=== PATIENT | female | born 1955 | race Caucasian/White ===

== ENCOUNTER 2018-12-28 13:59 | Inpatient (IN) | payer BC ==
[~2018-12-28] VITALS: Ht 165.1 cm; Wt 54.4 kg
--- NOTE | ~2018-12-28 | H ---
[facility] [address] [place] [address] HISTORY AND PHYSICAL Name: DAVI CAO Room #: 426-P ADM IN M.R.#: [id number] Admission: 12/28/18 ������������������ Attend Phys: Milton Valadez MD Discharge: ������������������ Date of : 53 Report #: [id number] THIS REPORT FOR: //name// CC: Milton Valadez DATE OF SERVICE: 12/28/2018 CHIEF COMPLAINT: Right-sided abdominal abscess causing persistent abdominal pain. DICTATION ENDS HERE ��������������������������������������������� ���������������������������������������� By: ��������������������������������������������� 1927 41 Milton Valadez MD /nt
--- NOTE | ~2018-12-28 | H ---
[facility] [place] [address] HISTORY AND PHYSICAL Name: DAVI CAO Room #: 426-P ADM IN M.R.#: [id number] Admission: 12/28/18 ������������������ Attend Phys: Milton Valadez MD Discharge: ������������������ Date of : 53 Report #: [id number] THIS REPORT FOR: //name// CC: Fernando Valadez DATE OF SERVICE: 12/28/2018 CHIEF COMPLAINT: Continued abdominal pain with finding of an abscess. HISTORY OF PRESENT ILLNESS: The patient is a 63-year-old female who has had irritable bowel from time to time. In August of this year she thought that it was time for her to have a colonoscopy, having been about 10 years since her previous one, and on 08/20/2018 Dr. Gonzalez performed a colonoscopy that was completely normal. About a month later she began to have severe abdominal pain over the left lower quadrant area and actually over the entire abdomen. It triggered nausea and vomiting and she was seen and admitted at an outside hospital on 09/13/2018. Evaluation was negative at that time with a finding of nonspecific inflammatory change in the right lower quadrant. She was admitted in the hospital overnight and discharged the following day. She had no further pain until several days leading up to her second outside hospitalization on 12/22/2018. ��������������������������������������������� ���������������������������������������� By: ��������������������������������������������� 1944 23 Milton Valadez MD /nt
--- NOTE | ~2018-12-28 | H ---
[facility] [place] [address] HISTORY AND PHYSICAL Name: DAVI CAO Room #: 426-P ADM IN M.R.#: [id number] Admission: 12/28/18 ������������������ Attend Phys: Milton Valadez MD Discharge: ������������������ Date of : 53 Report #: [id number] THIS REPORT FOR: //name// CC: Milton Valadez DATE OF SERVICE: 12/28/2018 CHIEF COMPLAINT: Right-sided abdominal pain. HISTORY OF PRESENT ILLNESS: The patient is a 63-year-old thin, female who has a persistent waxing and waning abdominal pain on the right side of the abdomen, more in the right upper quadrant. She was admitted at an outside hospital overnight from 12/22/2018 to 12/23/2018 and then discharged for further followup. CT scan of the abdomen showed an abnormal appearance of the colon suggesting diarrhea or perhaps other problems with the colon. The appendix was noted as being unusual in appearance and size, but having not changed from the comparison study of 09/13/2018. On 09/13/2018, she had presented to the same facility for the same complaints of abdominal pain with vomiting. Since she was released last week, her abdominal pain has been somewhat more persistent. Because of that, she decided to call my office and was seen and evaluated. She was found to have a palpable mass on the right side of the abdomen and hospitalization was indicated. She had not been seen in my office since 08/2017. CT scan of the abdomen this evening shows multiple abscesses in the right side of the abdomen. The appendix is not identified there. PERTINENT PAST MEDICAL HISTORY: On 08/20/2018, she had a routine screening colonoscopy and routine colonoscopy that was entirely normal. PAST SURGICAL HISTORY: She has had two sections. She has had no other surgical procedures except for a tonsillectomy when she was about 4 years old. ALLERGIES: SHE "BLACKED OUT" WHEN SHE WAS IN GRADE SCHOOL AFTER RECEIVING A SERIES OF PENICILLIN SHOT SEVERAL DAYS IN A ROW. THERE IS NO HISTORY OF A RASH ASSOCIATED WITH THAT REACTION. SHE WAS GIVEN SULFA ANTIBIOTIC FOR AN INFECTED TOE THAT CAUSED HER TO FEEL "WEIRD" IN 2008, BUT THERE IS NO RASH ASSOCIATED WITH THE SULFA EXPOSURE. CURRENT PRESCRIPTION MEDICATIONS: Sertraline at an unknown strength is being taken daily. Chondroitin sulfate [id number]. FAMILY HISTORY: Her mother had appendicitis. SOCIAL HISTORY: She works for the [employer]. She does [address] [address] HISTORY AND PHYSICAL Name: DAVI CAO Room #: 426-P [facility] IN [employer].#: [id number] Admission: 12/28/18 ������������������ Attend Phys: Milton Valadez MD Discharge: ������������������ Date of : 53 Report #: [id number] not smoke. She has 1-2 glasses of wine on a daily basis. She is and has children who [place]. REVIEW OF SYSTEMS: Entirely negative except for the HPI. PHYSICAL EXAMINATION: GENERAL: Shows a 63-year-old female who is uncomfortable. HEENT: Unremarkable. The oropharynx is normal. LUNGS: Clear. CARDIOVASCULAR: Heart tones are normal and regular. ABDOMEN: Has a palpable mass in the right mid portion of 8 x 4 cm. The area is tender with some rebound tenderness present. Bowel sounds are normal. EXTREMITIES: Normal. NEUROLOGIC: Normal as well. A CT scan has been performed this afternoon, colon shows multifocal abscesses along the margin of the cecum. There is also a comment regarding the cecum and the ascending colon suggesting of colitis. There is layering of fluid deep in the pelvis as well as bladder wall thickening. Important laboratory data shows her albumin to be low at 2.9, her CRP is elevated at 192 (less than 9). White blood cell count is normal at 8800 with 75% segmented neutrophils and 2% band forms, erythrocyte sedimentation rate is elevated at 71. The patient was again examined with Dr. Adolfo Walters. He reviewed the abscess location and it actually consists of multiple smaller abscesses and more of a phlegmon type distribution. ASSESSMENT: 1. Multiple abscesses outside of the colon wall, consistent with response to a leak or a rupture or again most consistent with that of an appendicitis. 2. Abdominal pain. 3. Mild depression, well treated on current dose of sertraline. PLAN: Reviewing the location of multiple abscesses, Dr. Walters has recommended that Interventional Radiology consider draining the areas. With her PENICILLIN ALLERGY HISTORY, she is being put on intravenous ciprofloxacin and metronidazole. Intravenous fluids are being given. She currently will remain n.p.o. until after consideration for a drainage procedure in the morning. [address] [address] HISTORY AND PHYSICAL Name: DAVI CAO Room #: 426-P ADM IN M.R.#: [id number] Admission: 12/28/18 ������������������ Attend Phys: Milton Valadez MD Discharge: ������������������ Date of : 53 Report #: [id number] The patient requests a full resuscitation. ��������������������������������������������� ���������������������������������������� By: ��������������������������������������������� 2006 2045 Milton Valadez MD /angelina
[2018-12-28 14:37] LABS: HEMATOCRIT 36.8 % (37.0-47.0); HEMOGLOBIN 12.2 gm/dL (12.0-15.0); MCH 30.9 pg (26.0-34.0); MCHC 33.1 g/dL (28.0-37.0); MCV 93.2 fL (80.0-100.0); PLATELET COUNT 355 thou/uL (150-400); RBC 3.95 mil/uL (4.20-5.00); RDW 13.2 % (10.5-14.5); WBC 8.8 thou/uL (4.0-11.0)
[2018-12-28 14:44] VITALS: BP 65/45
[2018-12-28 14:45] LABS: ALBUMIN 2.9 g/dL (3.4-5.0); CALCIUM 8.8 mg/dL (8.5-10.1); CREATININE 0.6 mg/dL (0.6-1.0); POTASSIUM 3.8 mmol/L (3.5-5.1); TOTAL BILIRUBIN 0.3 mg/dL (<0.1-1.0); TOTAL PROTEIN 7.2 g/dL (6.4-8.2)
[2018-12-28 15:05] LABS: ABSOLUTE NEUTROPHILS 6.9 thou/uL (1.4-8.2); ANISOCYTOSIS 1+; ATYPICAL LYMPHS 1 %
[2018-12-28 15:07] LABS: POLYCHROMASIA OCCASIONAL
[2018-12-28 15:49] VITALS: BP 105/72
--- NOTE | 2018-12-28 18:34 | NUR ---
Pt direct admit from Dr. Valadez office at approx 1500. A&o x4. Up ad dasha in room. IVF infusing. NPO. Drinking oral contrast for CT scan. Admission completed. Pt states she does not take any perscription medication at home. Dr. Walters consulted. Call light within reach. Will continue to monitor.
[2018-12-28 19:15] VITALS: BP 120/66
[2018-12-28 21:17] LABS: URINE BILIRUBIN NEGATIVE (Negative); URINE BLOOD NEGATIVE (Negative); URINE CLARITY CLEAR; URINE COLOR YELLOW; URINE GLUCOSE-RANDOM* NEGATIVE (Negative); URINE KETONES 2+ (Negative); URINE LEUKOCYTES-REFLEX NEGATIVE (Negative); URINE NITRITE-REFLEX NEGATIVE (Negative); URINE PROTEIN (DIPSTICK) TRACE (Negative); URINE SPECIFIC GRAVITY <= 1.005 (1.005-1.035); URINE UROBILINOGEN 0.2 E.U./dl (0.2-1.0)
[2018-12-29] VITALS (14 sets, daily range): BP systolic 91–120; BP diastolic 42–72
[2018-12-29 05:35] LABS: HEMATOCRIT 33.8 % (37.0-47.0); HEMOGLOBIN 11.4 gm/dL (12.0-15.0); MCH 31.3 pg (26.0-34.0); MCHC 33.7 g/dL (28.0-37.0); MCV 92.9 fL (80.0-100.0); PLATELET COUNT 300 thou/uL (150-400); RBC 3.64 mil/uL (4.20-5.00); RDW 13.2 % (10.5-14.5); WBC 7.5 thou/uL (4.0-11.0)
[2018-12-29 05:49] LABS: INR 1.1
[2018-12-29 05:52] LABS: ALBUMIN 2.3 g/dL (3.4-5.0); CALCIUM 8.1 mg/dL (8.5-10.1); CREATININE 0.6 mg/dL (0.6-1.0); POTASSIUM 3.7 mmol/L (3.5-5.1); TOTAL BILIRUBIN 0.3 mg/dL (<0.1-1.0); TOTAL PROTEIN 5.9 g/dL (6.4-8.2)
[2018-12-29 07:32] LABS: ABSOLUTE NEUTROPHILS 5.3 thou/uL (1.4-8.2)
[2018-12-29 07:33] LABS: ANISOCYTOSIS SLIGHT
--- NOTE | 2018-12-29 10:47 | NUR ---
Chart reviewed and case discussed with the care team. Cm role introduced at bedside. Pt is a&ox4 and living independently prior to admission. She works fulltime and has health insurance through her employer. Her dtrs Eliza and Umm are her primary contacts. Eliza lives locally. Pt awaiting IR procedure for draining abcess. Will follow for possible iv atb at dc pending the plan of care. The pt is agreeable if needed. Support provided.
--- NOTE | 2018-12-29 11:58 | NUR ---
Assumed care of pt at 0700. Pt a&ox4. Up ad dasha in room. IVF and antibiotics infusing. Awaiting on IR procedure. Pain controlled. Call light within reach.
--- NOTE | 2018-12-30 03:57 | NUR ---
ASSUMED PT CARE 1899. PT ALERT AND ORIENTED. REASSESSMENT COMPLETE. VSS. IV DRESSING C/D/I, NO SIGNS OF INFILTRATION. DENEIS PAIN, AND N/V. FLUSHED ABD DRAIN, MONITORING DRAINAGE. CALL LIGHT AND PERSONAL BELONINGS WITHIN REACH. WILL CONTINUE POC UNTIL EOS.
[2018-12-30 05:39] VITALS: BP 100/51
[2018-12-30 08:37] VITALS: BP 104/48
--- NOTE | 2018-12-30 08:57 | HC ---
[facility] [place] [address] CONSULTATION Name: DAVI CAO Room #: 426-P ADM IN M.R.#: [id number] Admission: 12/28/18 ������������������ Attend Phys: Milton Valadez MD Discharge: ������������������ Date of : 53 Report #: [id number] THIS REPORT FOR: //name// CC: Milton Valadez DATE OF SERVICE: 12/29/2018 INFECTIOUS DISEASE CONSULTATION ATTENDING PHYSICIAN: Milton Valadez MD REASON FOR CONSULTATION: Antibiotic management. HISTORY OF PRESENT ILLNESS: A 63-year-old white woman admitted with abdominal pain. CT scan revealed intra-abdominal abscesses, possibly of appendicular origin. She is started on Cipro and Flagyl. Denies having fevers. No vomiting, no chills. PAST MEDICAL HISTORY: Previous colonoscopy. sections x 2, tonsillectomy. DRUG ALLERGIES: PENICILLIN, QUESTION BLACKING OUT AFTER PENICILLIN, NO RASHES. SULFA DRUG ALLERGY WELL. MEDICATIONS: Currently, she is on treatment with metronidazole 500 IV every 8 hours, ciprofloxacin 500 mg IV b.i.d., morphine sulfate p.r.n., normal saline IV. 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 . Two children. REVIEW OF SYSTEMS: As above. PHYSICAL EXAMINATION: GENERAL: Well-developed, nontoxic looking woman. VITAL SIGNS: Temperature maximum since admission 99.4, pulse 76, respirations 18, BP low at 98/46. Height 5 feet 5 inches, weight 120 pounds. HEENMT: Within range. NECK: Supple. BREASTS: Deferred. LUNGS: Clear. HEART: S1, S2. No gallop or murmur. ABDOMEN: Palpable mass, right lower abdominal quadrant that is tender. PELVIC: Deferred. RECTAL: Deferred. EXTREMITIES: No clubbing, cyanosis. [facility] [address] [place] [address] CONSULTATION Name: DAVI CAO Room #: 426-P ADM IN [employer].#: [id number] Admission: 12/28/18 ������������������ Attend Phys: Milton Valadez MD Discharge: ������������������ Date of : 53 Report #: [id number] NEUROLOGIC: Grossly within normal limits. LABORATORY DATA: Revealed the following abnormals, low sugar of 64. Albumin 2.3 g/dL, CRP 192 mg/L. WBC 7.5, hemoglobin 11.4, platelets 300,000. Sedimentation rate 71 mm per hour. Urinalysis revealed trace protein. RADIOLOGY EVALUATION: CT scan of the abdomen and pelvis revealed diverticular abscesses on right lower abdominal quadrant. ASSESSMENT: 1. Appendicular intra-abdominal abscesses. 2. Hypoalbuminemia. 3. PENICILLIN AND SULFA drug allergy. SUGGESTIONS: Recommend continue Flagyl 500 IV every 8 hours, discontinue Cipro, start meropenem. There is a remote possibility of cross reaction with PENICILLIN, but I have never seen this before, better drug than Cipro. Proceed with percutaneous drainage of abscess. Dr. Valadez, thank you for requesting my suggestions. ��������������������������������������������� <ELECTRONICALLY SIGNED> ���������������������������������������� By: Pablo Frausto MD ��������������������������������������������� 12/30/18 0857 [id number] Pablo Frausto MD /nt
--- NOTE | 2018-12-30 15:43 | NUR ---
FAXED REFERRAL TO [facility] TO HAVE THEM CHECK ON IV ABX COVERAGE IN CASE SHE NEEDS HOME IV ABX. WILL AWAIT COVERAGE INFORMATION.
--- NOTE | 2018-12-30 15:54 | NUR ---
Assumed pt care at 7am.Pt in bed very pleasant and involved in her care. Assessment completed.vss.Breakfast ordered and given.Notified intervention radiology about supplying drainage bag to abdominal abscess.Made several calls before on of the rn came up to attach the bag.Received call from Dr Valadez, updates given.Meds given as ordered.Will continue to monitor.
--- NOTE | 2018-12-30 16:18 | HC ---
[facility] [place] [address] CONSULTATION Name: DAVI CAO Room #: 426-P ADM IN M.R.#: [id number] Admission: 12/28/18 ������������������ Attend Phys: Milton Valadez MD Discharge: ������������������ Date of : 53 Report #: [id number] THIS REPORT FOR: //name// CC: Milton Valadez DATE OF SERVICE: 12/28/2018 SURGICAL CONSULTATION NOTE REASON FOR CONSULTATION: Persistent abdominal pain, right abdomen with a mass. HISTORY OF PRESENT ILLNESS: The patient is a 63-year-old who is admitted for treatment of abdominal pain. I was contacted by Dr. Valadez this morning regarding the patient. She does have a complicated recent medical disease process. The patient was first seen and hospitalized at [facility] on 09/13/2018. She was having abdominal pain at that time. She was hospitalized with pain and vomiting and was hospitalized for a couple of days. She was told she had gastroenteritis. The patient did have a CT performed. The patient felt better, was able to go home. She had done pretty well until 10 days ago where she had the pain come up again and she was seen in the Emergency Room on 12/22/2018. The patient did have a surgical consultation note. Apparently, a repeat CT suggested diarrhea and inflammation and possibly ileitis. I was able to have the CT loaded and I reviewed it with Dr. Beasley here and the patient on her first CT in September looks like her appendix is in a weird position located anterior and superior to the kidney. The cecum is folded on itself. It looked like there was a degree of inflammation of the appendix in September. On 12/22/2018, the CT showed inflammatory mass, which was in a similar location as the appendix but more anterior. It may be due to the fact that her cecum was more full of liquid and it pushed it more anteriorly, but looking at the progression of her CT scan it looked like she had appendicitis. I called Dr. Valadez and spoke with him and the patient is being admitted for further workup repeating a CT today. The patient did have a repeat CT done just now and it did show multiple abscesses. PAST MEDICAL HISTORY: Pretty unremarkable, possibly some depression history. PAST SURGICAL HISTORY: The patient has surgical history of 2 C-sections, tonsillectomy and toe surgery. FAMILY HISTORY: Possibly mom had appendicitis. REVIEW OF SYSTEMS: The patient did have a fever when she was hospitalized to [facility]. The patient denies really sweats, fever at home, and chills. She does have a painful swelling in the right abdomen. PHYSICAL EXAMINATION: [address] [address] CONSULTATION Name: DAVI CAO Room #: 426-P ADM IN M.R.#: [id number] Admission: 12/28/18 ������������������ Attend Phys: Milton Valadez MD Discharge: ������������������ Date of : 53 Report #: [id number] GENERAL: The patient is a thin female. She is not in acute distress. ABDOMEN: There is a large mass in the right mid part of the abdomen that is 4 cm across and 8 cm in length. She is tender in this area. The rest of the abdomen is rather soft without any guarding or rigidity. Bowel sounds are present. IMPRESSION: The patient with a very complex medical history and this is looking back at her history and her CT scan the most likely problem was appendicitis. Her appendix is in an unusual location, which probably led to the misdiagnosis. She now has an abscess that had formed. This is causing the mass, her persistent pain. Very interesting that she does not have elevated white count. She does have a high sed rate and C-reactive protein. Plan of treatment was discussed with Dr. Valadez. The patient is going to be on IV antibiotics. I have put an order for IR to drain the abscess. There are multiple abscesses, hopefully they can get to the larger one and that would help her. We will follow. Plan discussed with Dr. Valadez and the patient. ��������������������������������������������� <ELECTRONICALLY SIGNED> ���������������������������������������� By: Adolfo Walters MD ��������������������������������������������� 12/30/18 1618 1214 18 Adolfo Walters MD /nt
--- NOTE | 2018-12-30 16:36 | NUR ---
RECEIVED WORD BACK FROM [facility] THAT PT HAS 100% COVERAGE FOR DRUG AND SUPPLIES IF IV ABX NEEDED FOR HOME.
[2018-12-30 16:53] VITALS: BP 127/52
[2018-12-30 19:15] VITALS: BP 111/37
--- NOTE | 2018-12-31 04:05 | NUR ---
ASSUMED PT CARE 1899. PT ALERT AND ORIENTED. REASSESSMENT COMPLETE. VSS. IV DRESSING C/D/I. DRAINAGE BAG IN PLACE. MINIMAL OUTPUT. PT DENIES PAIN, DENIES N/V. CALL LIGHT WITHIN REACH. WILL CONTINUE POC UNTIL EOS.
[2018-12-31 04:48] VITALS: BP 105/56
[2018-12-31 05:05] LABS: CALCIUM 7.7 mg/dL (8.5-10.1); CREATININE 0.6 mg/dL (0.6-1.0); POTASSIUM 4.7 mmol/L (3.5-5.1)
[2018-12-31 09:00] VITALS: BP 110/56
[2018-12-31 16:17] VITALS: BP 114/69
--- NOTE | 2018-12-31 16:34 | NUR ---
Assumed pt care at 7am.Pt in and out of room ambulating in hallways.Dr Valadez here order noted.Pt tolerated meds and diet.New piv placed today due to infiltration.Ascess drain flushed with saline as ordered.Warm moist applied to rt ac.Will continue to monitor.
[2018-12-31 19:12] VITALS: BP 102/56
--- NOTE | 2019-01-01 02:50 | NUR ---
ASSUMED PT CARE 1899. PT ALERT AND ORIENTED. REASSESSMENT COMPLETE. VSS. IV DRESSING C/D/I. PT DENIES N/V. REPORTS MINIMAL PAIN. CALL LIGHT AND PERSONAL BELONIGNS WITHIN REACH. WILL CONTINUE POC UNTIL EOS.
[2019-01-01 04:22] VITALS: BP 107/57
[2019-01-01 05:13] LABS: ABSOLUTE NEUTROPHILS 2.6 thou/uL (1.4-8.2); BASOPHILS 0.6 % (0.0-2.0); EOSINOPHILS 2.6 % (0.0-3.0); HEMATOCRIT 34.4 % (37.0-47.0); HEMOGLOBIN 11.4 gm/dL (12.0-15.0); LYMPHOCYTES 20.2 % (24.0-44.0); MCH 30.8 pg (26.0-34.0); MCHC 33.3 g/dL (28.0-37.0); MCV 92.6 fL (80.0-100.0); MONOCYTES 11.2 % (1.0-8.0); POLYS 65.4 % (36.0-66.0); RBC 3.71 mil/uL (4.20-5.00); RDW 13.3 % (10.5-14.5); WBC 3.9 thou/uL (4.0-11.0)
[2019-01-01 05:24] LABS: PLATELET COUNT 415 thou/uL (150-400)
[2019-01-01 05:25] LABS: INR 1.2; PROTIME 12.9 Seconds (9.3-11.4)
[2019-01-01 05:39] LABS: ALBUMIN 1.9 g/dL (3.4-5.0); CREATININE 0.7 mg/dL (0.6-1.0); TOTAL BILIRUBIN 0.1 mg/dL (<0.1-1.0); TOTAL PROTEIN 5.4 g/dL (6.4-8.2)
[2019-01-01 07:25] VITALS: BP 98/53
[2019-01-01 15:42] VITALS: BP 98/53
--- NOTE | 2019-01-01 16:08 | NUR ---
RECEIVED ORDERS THIS AFTERNOON TO ARRANGE IV ABX FOR PT TO DC HOME TODAY. CONTACTED [facility] TO DO THE NURSING AND THEY ARE ABLE TO ACCEPT FOR IV ABX. [facility] HERE TO DO TEACHING ONCE PICC LINE IS IN PLACE. HOME IV ABX FAXED TO [facility]. AWAITING FINAL ORDERS FROM DR GALLEGOS.
--- NOTE | 2019-01-01 16:17 | NUR ---
Assumed pt care at 7am.Pt kept npo for ct abd for f/u abdominal abscess drain. Left around 10 and returned to floor 2 hours later.Assessment completed.vss. Pt ambulated in hallways several times.Dr Frausto here,order noted.Received call from Dr Valadez,updates given.Iv team notified about picc line.Consent signed and picc line placed.Pt will be dc home later this evening or early in am.Pt was concerned about tenderness to her abdomen.No redness noted after examine.Will continue to monitor.
--- NOTE | 2019-01-01 16:44 | NUR ---
VASCULAR ACCESS CONSULTED FOR PICC FOR HOME ABX. PT'S LABS,MEDS,HISTORY,ORDER AND CONSENT VERIFIED. DISCUSSED BENEFITS AND RISKS WITH PT,VERBALIZED UNDERSTANDING. PT WAS PREPPED AND DRAPED FOR MAX BARRIER PRECAUTIONS. MARINO BRACHIAL WAS WIDELY PATENT WITH USG, 1% LIDOCAINE GIVEN SQ. 4FR SL PICC TRIMMED TO 45CM INSERTED TO 1CM EXTERNAL. PICC SECURED STAT CXR ORDERED. WALLET CARD GIVEN TO PT.
--- NOTE | 2019-01-01 17:10 | NUR ---
PICC RELEASED FOR IMMEDIATE USE PER PROTOCOL, CONFIRMED WITH CXR
[2019-01-01 18:01] VITALS: BP 98/53
[2019-01-01 18:34] VITALS: BP 98/53
--- NOTE | 2019-01-01 19:08 | NUR ---
Dr rivero here later this evening.Dc order noted.Picc line placed by iv team earlier this afternoon.First dose of antibiotic given and no reactions noted. Dc summary compiled and reviewed with pt.Saline warren saavedra'austin.At 1900,pt dc home ambulatory accompanied by transporter.
== END 2019-01-01 19:01 | disposition home or self-care (01) | DRG 371 ==
LOC: 4E 13:59 → ENTRNSPT 01-01 18:41 → 4E 01-01 19:01
PROVIDERS: ADMIT Internal Medicine
PROC: 02HV33Z Insertion of Infusion Device into Superior Vena Cava, Percutaneous Approach (ICD-10-PCS; principal; 2018-12-29)
PROC: 0W9J3ZZ Drainage of Pelvic Cavity, Percutaneous Approach (ICD-10-PCS; principal; 2018-12-29)
DX: K35.33 Acute appendicitis with perforation, localized peritonitis, and gangrene, with abscess (principal); E43 Unspecified severe protein-calorie malnutrition; F32.9 Major depressive disorder, single episode, unspecified; N73.9 Female pelvic inflammatory disease, unspecified; Z98.891 History of uterine scar from previous surgery; Z88.0 Allergy status to penicillin; Z88.2 Allergy status to sulfonamides
CPT/HCPCS: 10783; 27000

== ENCOUNTER → 2019-01-07 | Outpatient (CLI) | payer BC | LOC: CAT 11:51 | DX: I70.0 Atherosclerosis of aorta (principal); R91.1 Solitary pulmonary nodule; M51.37 Other intervertebral disc degeneration, lumbosacral region; M12.88 Other specific arthropathies, not elsewhere classified, other specified site; K65.1 Peritoneal abscess; K56.41 Fecal impaction ==

== ENCOUNTER → 2019-01-27 | Outpatient (CLI) | payer BC | LOC: CAT 08:19 | DX: K42.9 Umbilical hernia without obstruction or gangrene (principal); K52.9 Noninfective gastroenteritis and colitis, unspecified; K35.33 Acute appendicitis with perforation, localized peritonitis, and gangrene, with abscess; K56.41 Fecal impaction ==

== ENCOUNTER 2019-02-05 05:21 | Day surgery (SDC) | payer BC ==
[~2019-02-05] VITALS: Ht 165.1 cm; Wt 49.0 kg
[~2019-02-05 05:21] MED LIST: ALEVE220 MG PO; PROBIOTIC1 EAC1 PO; ZOLOFT50 MG PO
[2019-02-05 08:41] VITALS: BP 89/52
[2019-02-05 08:49] LABS: HEMATOCRIT 44.6 % (37.0-47.0); HEMOGLOBIN 14.7 gm/dL (12.0-15.0)
--- NOTE | 2019-02-05 09:24 | EKG ---
[place] [address] [facility] [place] [address] ELECTROCARDIOGRAM REPORT Name: DAVI CAO Room #: 150-4 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 : [id number] Requested By: Adolfo Walters Order Number: [id number] MD: Cameron Mazariegos Measurements Intervals [place] Rate: 68 P: 81 MT: 144 QRS: 77 QRSD: 113 T: 26 QT: 438 QTc: 466 Interpretive Statements Sinus rhythm Incomplete right bundle branch block No previous ECG available for comparison Electronically Signed On 02-05-2019 9:23:55 CDT by Cameron Mazariegos [email or web address] ��������������������������������������������� <ELECTRONICALLY SIGNED> ���������������������������������������� By: Cameron Mazariegos MD, [facility] ��������������������������������������������� 02/05/19 0923 0849 0849 Cameron Mazariegos MD, FACC /EPI
[2019-02-05 16:24] VITALS: BP 119/61
[2019-02-05 19:37] VITALS: BP 115/66
[2019-02-05 23:36] VITALS: BP 55/52
[2019-02-06 06:10] VITALS: BP 96/53
--- NOTE | 2019-02-06 06:43 | NUR ---
ASSUMED CARE OF PT @1900. PT A&OX4. ARRIVED ON THE FLOOR @1620 FROM [facility]. PAIN MEDS GIVEN FOR MANAGEMENT SEE EMAR. ABX GIVEN AND FLUIDS INFUSING. POC DONE AND WILL CONTINUE TO MONITOR TILL EOS
--- NOTE | 2019-02-06 11:39 | O ---
[facility] [place] [address] OPERATIVE REPORT Name: DAVI CAO Room #: 420-P [facility] M.R.#: [id number] Admission: 02/05/19 ������������������ Attend Phys: Adolfo Walters MD Discharge: ������������������ Date of : 53 Report #: [id number] THIS REPORT FOR: //name// CC: Adolfo Valadez MD DATE OF SERVICE: 02/05/2019 PREOPERATIVE DIAGNOSIS: Ruptured appendicitis with abscess, status post percutaneous drainage of abscess and antibiotic treatment, here for appendectomy. POSTOPERATIVE DIAGNOSIS: Ruptured appendicitis with abscess, status post percutaneous drainage of abscess and antibiotic treatment, here for appendectomy. PROCEDURE PERFORMED: Laparoscopic appendectomy. SURGEON: Adolfo Walters M.D. ANESTHESIA: General. COMPLICATIONS: None. ESTIMATED BLOOD LOSS: 5 mL. FINDINGS: The appendix tip was markedly distended and adhesed to the surrounding tissue. The cecum is abnormally located in the right upper quadrant. The main part of the appendix and the base of appendix were not inflamed. Loose areolar adhesion was divided. DESCRIPTION OF PROCEDURE: With the patient under general anesthesia, abdomen was prepped and draped in sterile fashion. IV antibiotic was administered. A 0.25% Marcaine was used to anesthetize the skin. A small 0.5 cm curvilinear incision was made infraumbilically. Fascia identified, grasped with hemostat. Fascia was then opened under visualization, 0 Vicryl suture placed in the fascia for retraction. With the wall lifted anteriorly, Veress needle was then placed through the peritoneum. Abdominal cavity was insufflated by CO2. A 12 mm trocar was placed within the pneumoperitoneum after the pneumoperitoneum was established. A 5 mm trocar was placed in the midepigastrium. This was placed under visualization. A second 5 mm trocar was placed about 2 inches below the umbilicus. The cecum was located in right upper quadrant and malrotated. It seems like the transverse colon was actually inferior to it. There was some filmy adhesion that was divided. The appendix tip was actually anteriorly located and was able to be visualized. It was markedly dilated and adhesed to [facility] [address] [place] [address] OPERATIVE REPORT Name: DAVI CAO Room #: 420-P [facility] M.R.#: [id number] Admission: 02/05/19 ������������������ Attend Phys: Adolfo Walters MD Discharge: ������������������ Date of : 53 Report #: [id number] the surrounding fatty tissue. The rest of the body of the appendix and the base of the appendix were easily visualized going into the cecum and was not inflamed. I did try to peel the adhesion off the tip, but it was fairly tight. I decided to go ahead and isolate the appendix at the base and work backwards. This was accomplished easily. The mesoappendix was divided with Harmonic scalpel. This was performed with care of not harming the appendiceal base. The appendiceal base was isolated. An Endo-MIGUELINA 45 mm with a blue staple was then fired across the base of the appendix. The appendix was then from the cecum. The mesoappendix adjacent to the appendix along the normal portion of the mesoappendix was divided without difficulty. Towards the base there, the mesoappendix was divided from the inflammatory adhesion. There was a little bit of mucus material present. The appendix was able to be freed. The appendix was stuck to the inflammatory tissue and this was irrigated. The appendix afterwards was free, was placed in the specimen bag, retrieved through the infraumbilical port without difficulty. A 12 mm trocar was then replaced. Irrigation was performed. Irrigation was aspirated out. The trocars were then removed. CO2 was evacuated as much as possible. The fascia defect infraumbilically was closed with [id number] 0 Vicryl x 2. Skin was irrigated. Skin was closed with 5-0 PDS. Steri-Strip, Band-Aids applied to the incision. The patient awakened and taken to recovery room. ��������������������������������������������� <ELECTRONICALLY SIGNED> ���������������������������������������� By: Adolfo Walters MD ��������������������������������������������� 02/06/19 [id number] Adolfo Walters MD /angelina
[2019-02-06] MEDS ORDERED: HYDROCODON-ACE1 EAC7 PO (12:00)
[2019-02-06 12:46] VITALS: BP 96/53
--- NOTE | 2019-02-06 13:20 | NUR ---
DISCHARGED TO HOME WITH DAUGHTER IN PRIVATE VEHICLE. DENIES PAIN. TOLERATED REGULAR DIET FOR BREAKFAST AND LUNCH. SKIN WARM AND DRY. LAP SITES CLEAN AND DRY WITH BANDAIDS INTACT. VERBALIZES UNDERSTANDING OF DISCHARGE INSRUCTIONS.
== END 2019-02-06 13:22 | disposition home or self-care (01) ==
LOC: TBA 05:21 → OR 05:21 → 4E 16:15 → OR 02-06 13:22
PROVIDERS: Surgery
DX: K35.33 Acute appendicitis with perforation, localized peritonitis, and gangrene, with abscess (principal); F41.9 Anxiety disorder, unspecified; F32.9 Major depressive disorder, single episode, unspecified; Z98.890 Other specified postprocedural states; Z79.899 Other long term (current) drug therapy; Z88.0 Allergy status to penicillin; Z88.2 Allergy status to sulfonamides; Z88.8 Allergy status to other drugs, medicaments and biological substances
CPT/HCPCS: 10783; 50010; 50101; 50243; 50246; 50411; 50555; 50558; 51489; 53307; 53310; 53312; 53335; 56525; 56526; 62110; 62900; 70005

== ENCOUNTER → 2021-08-09 | Outpatient (CLI) | payer OTHER ==
[~2021-08-09] MED LIST changes: +HYDROCODON-ACE1 EAC7 PO
== END ==
LOC: CAT 09:45
PROVIDERS: ATTEND Internal Medicine
DX: Z13.6 Encounter for screening for cardiovascular disorders (principal); E78.00 Pure hypercholesterolemia, unspecified; I25.10 Atherosclerotic heart disease of native coronary artery without angina pectoris